=== PATIENT | female | born 1970 | race Caucasian/White ===

== ENCOUNTER 2019-08-30 18:42 | Inpatient (IN) | payer OTHER ==
[~2019-08-30] VITALS: Ht 170.2 cm; Wt 84.6 kg
[2019-08-30] VITALS (114 sets, daily range): BP systolic 138; BP diastolic 88; PULSE 106; TEMP 99.7; O2SAT 88–98
[2019-08-30] MEDS ORDERED: SYNTHROID0.1 MG/TAB PO (18:56)
[2019-08-30] MEDS ORDERED: CORTEF5 MG PO (18:56)
[2019-08-30] MEDS ORDERED: PROAIR HFA0.09 MG/AC IH (18:57)
[2019-08-30] MEDS ORDERED: ARNUITY200 IH (18:58)
[2019-08-30] MEDS ORDERED: FLEXERIL 1010 MG/TAB PO (18:58)
[2019-08-30] MEDS ORDERED: ZITHROMAX500 M2 PO (18:59)
[2019-08-30] MEDS ORDERED: ETHAMBUTOL HYD400 MG PO (18:59)
[2019-08-30] MEDS ORDERED: RIFADIN300 MG PO (18:59)
[2019-08-30] MEDS ORDERED: TOPAMAX 100MG100 M1 PO (18:59)
[2019-08-30] MEDS ORDERED: NEURONTIN400 MG/CAP PO (19:00)
[2019-08-30] MEDS ORDERED: PERCOCET 325 MG1 TA2 PO (19:01)
[2019-08-30] MEDS ORDERED: MS CONTIN 115 MG/TAB PO (19:01)
[2019-08-30] MEDS ORDERED: ATIVAN 1MG T1 MG/TAB PO (19:01)
[2019-08-30] MEDS ORDERED: MINIPRESS 1M1 MG/CAP PO (19:02)
[2019-08-30 19:05] LABS: BASO % 0.2 % (0.0-2.0); EOS # 0.3 (0.0-0.7); EOS % 2.1 % (0-4.0); GRAN # 10.5 (1.4-6.5); GRAN % 76.9 % (42.2-75.2); LYMPH # 1.4 (1.2-3.4); LYMPH % 10.2 % (20.0-51.0); MEAN CELL VOLUME 100 fl (80.0-100.0); MEAN CORPUSCULAR HGB CONC 36 g/dl (33.0-37.0); MEAN PLATELET VOLUME 8.3 fl (7.4-10.4); MONO # 1.3 (0.1-0.6); MONO % 9.6 % (1.7-9.3); PLATELET COUNT 199 K/mm3 (130-400); RED BLOOD COUNT 2.74 M/mm3 (4.10-5.30)
[2019-08-30 19:06] LABS: HEMATOCRIT 27.4 % (37.0-47.0); HEMOGLOBIN 9.8 g/dl (12.5-16.0); MEAN CORPUSCULAR HEMOGLOBIN 36 pg (27.0-31.0)
[2019-08-30] MEDS ORDERED: COMPAZINE 110 MG/TAB PO (19:07)
[2019-08-30] MEDS ORDERED: ZOFRAN ODT8 MG PO (19:08)
[2019-08-30] MEDS ORDERED: PRILOSEC 20MG20 MG PO (19:08)
[2019-08-30] MEDS ORDERED: MAXALT10 MG PO (19:09)
[2019-08-30] MEDS ORDERED: SINGULAIR 110 MG/TAB PO (19:09)
[2019-08-30] MEDS ORDERED: ZOVIRAX5% TP (19:09)
[2019-08-30] MEDS ORDERED: BALANCE B-1001 TA1 PO (19:10)
[2019-08-30] MEDS ORDERED: CALCIUM CITRATE1 TA7 PO (19:10)
[2019-08-30] MEDS ORDERED: REMERON 15M15 MG/TA1 PO (19:11)
[2019-08-30] MEDS ORDERED: ECHINACEA 5001 EACH (19:11)
[2019-08-30] MEDS ORDERED: BRINTELLIX10 PO (19:11)
[2019-08-30 19:37] LABS: ARTERIAL BLD GAS O2 SATURATION 94.7 % (92-100); ARTERIAL BLD GAS TCO2 CT 23.6; ARTERIAL BLOOD GAS BASE EXCESS -2.8 (-2-2); ARTERIAL BLOOD GAS HCO3 22.4 meq/L (22-26); ARTERIAL BLOOD GAS PCO2 40.3 mmHg (35-45); ARTERIAL BLOOD GAS PO2 78.6 mmHg (80-100); ARTERIAL BLOOD GAS pH 7.36 (7.35-7.45)
[2019-08-30 19:43] LABS: ALBUMIN 3.8 gm/dL (3.5-5.0); BILIRUBIN,TOTAL 0.5 mg/dL (0.0-1.0); CREATININE, serum 0.68 (0.52-1.25)
[2019-08-30 19:52] LABS: COLLECTION METHOD CLEAN CATCH
[2019-08-30 20:05] LABS: PH 7 (5-8); SQUAMOUS EPITHELIAL None Seen /hpf; URINE APPEARANCE Clear; URINE BACTERIA None Seen /hpf; URINE BILIRUBIN Negative (NEGATIVE); URINE BLOOD 1+ (NEGATIVE); URINE COLOR Yellow; URINE GLUCOSE Negative (NEGATIVE); URINE KETONE Negative (NEGATIVE); URINE LEUKOCYTE ESTERASE Negative (NEGATIVE); URINE NITRATE Negative (NEGATIVE); URINE PROTEIN(semi-quant) Negative (NEGATIVE); URINE RBC 0-2 /hpf; URINE UROBILINOGEN Negative (NEGATIVE)
--- NOTE | 2019-08-30 21:55 | NUR ---
Patient arrived on unit via ER bed accompanied by DERRICK Juan. Patient stood from bed and transferred to unit bed with x1 assist, connected to CRM, oriented to room. Patient stated that she was nauseated and wanted Zofran, I stated that I would check her MAR and administer it if it was on there. PT noted to be coughing but not producing anything yet. 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 Will continue to monitor and educate.
[2019-08-31] VITALS (621 sets, daily range): BP systolic 111–146; BP diastolic 64–85; PULSE 84–113; TEMP 98.2–99.7; O2SAT 86–100
[2019-08-31 06:40] LABS: HEMOGLOBIN 10.5 g/dl (12.5-16.0); MEAN CELL VOLUME 102 fl (80.0-100.0); MEAN CORPUSCULAR HEMOGLOBIN 35 pg (27.0-31.0); MEAN CORPUSCULAR HGB CONC 35 g/dl (33.0-37.0); MEAN PLATELET VOLUME 8.4 fl (7.4-10.4); PLATELET COUNT 184 K/mm3 (130-400); RED BLOOD COUNT 2.97 M/mm3 (4.10-5.30); REDCELL DISTRIBUTION WIDTH-CV 13.8 % (11.5-14.5)
[2019-08-31 06:51] LABS: ALANINE AMINOTRANSFERASE 28 U/L (9-52); ALBUMIN 3.7 gm/dL (3.5-5.0); ALKALINE PHOSPHATASE 177 U/L (50-136); ANION GAP 10 mmol/L (7-16); AST,SGOT 39 U/L (15-37); BILIRUBIN,TOTAL 0.4 mg/dL (0.0-1.0); BLOOD UREA NITROGEN 11 mg/dL (7-17); CARBON DIOXIDE 26 mmol/L (22-30); CHLORIDE 90 mmol/L (98-107); GLUCOSE 135 mg/dL (74-106); MAGNESIUM 1.7 mg/dL (1.6-2.3); POTASSIUM 4.4 mmol/L (3.4-5.0); SODIUM 127 mmol/L (137-145); TOTAL PROTEIN 6.8 gm/dL (6.4-8.2)
[2019-08-31 06:59] LABS: HEMATOCRIT 30.2 % (37.0-47.0)
[2019-08-31 07:02] LABS: TROPONIN-I < 0.012 ng/mL (0.000-0.035)
[2019-08-31 07:08] LABS: BAND 4 % (0-10); LYMPHOCYTE 1 % (20.0-51.0); NEUTROPHILS 94 % (42.0-75.2)
[2019-08-31 07:09] LABS: ANISOCYTOSIS 1+; PLATELET ESTIMATE NORMAL (NORMAL)
[2019-08-31 09:59] LABS: CREATININE, serum 0.8 (0.52-1.25)
[2019-08-31 10:00] LABS: FRACTIONAL EXCRETION OF NA+ 0.3 %
--- NOTE | 2019-08-31 14:02 | NUR ---
Plan: To return home with son as her care [phone]. Patient also wants her son listed as her EMR. Patient reports that she does not currently have a DPOA, SW left a form with her to view and discuss with her son. Patient resides in [place], however she is here visiting her son currently. Assess: SW met with patient who was laying in bed watching television. Patient reports that she is independent with no DME assistance at home. Patient reports that her PCP is Dr. Dane Doe who resides in [place], with no upcoming appointments. Patient receives her medications from [facility] in [place]. Patient did remark how expensive her medications were. She was provided with a [facility] prescription card for assistance. Patient denied having any care concerns, and she denied a need for HHS. Action: No additional concerns identified. Patient was educated on community resources and supports.
--- NOTE | 2019-08-31 16:37 | NUR ---
Pt transported to 3rd Surgical floor, pt tolerated transfer well. Care resumed
--- NOTE | 2019-08-31 18:27 | NUR ---
Patient has done well. Up at sink brushing her teeth independently. Steady gait. Patient denies pain or further needs at this time. Will report off to intensive care medicine specialist.
--- NOTE | 2019-08-31 22:22 | NUR ---
LUNGS COARSE WITH EXP WHEEZES. PT HAS BEEN COUGHING. NO SPUTUM PRODUCTION SEEN/REPORTED.
[2019-09-01 00:24] VITALS: BP 133/65; PULSE 90; TEMP 98.4
[2019-09-01 04:05] VITALS: BP 119/64; PULSE 85; TEMP 97.8
[2019-09-01 07:35] VITALS: BP 133/71; PULSE 97; TEMP 98
--- NOTE | 2019-09-01 08:00 | NUR ---
Medicated with Zofran per request. Percocet given for c/o abdominal pain. Stated doesn't feel good in general. O2 on.
[2019-09-01 11:20] VITALS: BP 118/72; PULSE 86; TEMP 98.3
[2019-09-01 13:09] LABS: BASO % 0.1 % (0.0-2.0); GRAN % 84.1 % (42.2-75.2); HEMATOCRIT 29.4 % (37.0-47.0); LYMPH % 9.1 % (20.0-51.0); MEAN CELL VOLUME 104 fl (80.0-100.0); MEAN CORPUSCULAR HEMOGLOBIN 36 pg (27.0-31.0); MEAN CORPUSCULAR HGB CONC 34 g/dl (33.0-37.0); MEAN PLATELET VOLUME 8.5 fl (7.4-10.4); MONO # 0.6 (0.1-0.6); MONO % 5.3 % (1.7-9.3); PLATELET COUNT 218 K/mm3 (130-400); RED BLOOD COUNT 2.82 M/mm3 (4.10-5.30); REDCELL DISTRIBUTION WIDTH-CV 14.2 % (11.5-14.5)
[2019-09-01 13:23] LABS: ALBUMIN 3.8 gm/dL (3.5-5.0); BILIRUBIN,TOTAL 0.2 mg/dL (0.0-1.0); CALCIUM 9.3 mg/dL (8.4-10.2); CREATININE, serum 0.74 (0.52-1.25); POTASSIUM 4.9 mmol/L (3.4-5.0)
[2019-09-01 16:11] VITALS: BP 112/60; PULSE 98; TEMP 98.9
--- NOTE | 2019-09-01 18:00 | NUR ---
States coughing up more phlegm this afternoon. Afebrile. Pain and nausea relieved with prn meds.
[2019-09-01 19:56] VITALS: BP 126/68; PULSE 92; TEMP 98.8
--- NOTE | 2019-09-01 20:00 | NUR ---
Pt resting in bed. No distress noted. Respiration even. Pt is dyspneic with exertion. Expiratory wheezes auscultated throughout lung flowers. O2 titrated down to 1L via NC. Spo2 96%. Pt rating pain 6/10 in R LQ. Abdomen is soft- tender at RLQ. BS+. Telemetry in place- ST. Pt c/o anxiety, as well.
[2019-09-02 00:25] VITALS: BP 115/64; PULSE 84
[2019-09-02 04:37] VITALS: BP 130/57; PULSE 89; TEMP 98.8
--- NOTE | 2019-09-02 06:20 | NUR ---
Pt sleeping this AM after being awake a majority of the night. Pain well controlled with PRN pain medication. VSS.
[2019-09-02 06:24] LABS: MEAN CELL VOLUME 105 fl (80.0-100.0); MEAN CORPUSCULAR HGB CONC 33 g/dl (33.0-37.0); MEAN PLATELET VOLUME 8.4 fl (7.4-10.4); PLATELET COUNT 220 K/mm3 (130-400); RED BLOOD COUNT 2.57 M/mm3 (4.10-5.30); REDCELL DISTRIBUTION WIDTH-CV 14.5 % (11.5-14.5)
[2019-09-02 06:26] LABS: HEMOGLOBIN 8.9 g/dl (12.5-16.0); MEAN CORPUSCULAR HEMOGLOBIN 35 pg (27.0-31.0)
[2019-09-02 06:35] LABS: ALBUMIN 3.2 gm/dL (3.5-5.0); BILIRUBIN,TOTAL 0.1 mg/dL (0.0-1.0); CREATININE, serum 0.81 (0.52-1.25); POTASSIUM 4.2 mmol/L (3.4-5.0)
[2019-09-02 07:25] LABS: BAND 5 % (0-10); LYMPHOCYTE 26 % (20.0-51.0); NEUTROPHILS 62 % (42.0-75.2); PLATELET ESTIMATE NORMAL (NORMAL)
[2019-09-02 07:26] VITALS: BP 128/69; PULSE 77; TEMP 98.7
[2019-09-02] MEDS ORDERED: LEVAQUIN 5500 MG/TA1 PO (10:54)
[2019-09-02] MEDS ORDERED: PREDNISONE10 MG PO (11:07)
--- NOTE | 2019-09-02 11:17 | NUR ---
SW presented the IM form to the patient. The patient understood and signed the form. A copy was provided to the patient and original was placed in the chart. social human services assistants will continue to follow.
[2019-09-02 11:19] VITALS: BP 129/75; PULSE 93; TEMP 98.6
--- NOTE | 2019-09-02 15:43 | NUR ---
The patient is needing oxygen. MADELINE faxed referral to [facility] due to the patient living in [place]. [employer] [employer]'s parent company is [employer] and this company is national. MADELINE faxed referral and awaiting response.
[2019-09-02 16:02] VITALS: BP 106/58; PULSE 93; TEMP 99.3
--- NOTE | 2019-09-02 16:36 | NUR ---
Ernestina from [facility] [employer] report they will set-up oxygen for the patient. There are no addtional needs at this time.
--- NOTE | 2019-09-02 18:04 | NUR ---
Patient will discharge this evening. Her son can not pick her up until after 2030pm. [facility] brought her oxygen tanks for going to her sons. Her IV was pulled out, IV discontinued since she is discharging. Medication for nausea and pain given as ordered troughout the shift. No other changes at this time. Call light within reach.
--- NOTE | 2019-09-02 22:46 | NUR ---
PATIENT DISCHARGING. IV PREVIOUSLY DC'D BY NURSING STAFF. PATIENT TEACHING DONE. PATIENT DRESSED INDEPENDENTLY. PATIENT DISCHARGED AT 1999. ESCORTED OUT BY NURSING STAFF VIA WHEELCHAIR TO HOME WITH SON.
== END 2019-09-02 20:00 | disposition home or self-care (01) | DRG 871 ==
LOC: COL.ER 18:42 → SURG 20:20 → ICU 20:20 → SURG 08-31 16:24
PROVIDERS: Family Medicine; Student in an Organized Health Care Education/Training Program; ADMIT Internal Medicine
DX: A41.9 Sepsis, unspecified organism (principal); J18.9 Pneumonia, unspecified organism; J96.01 Acute respiratory failure with hypoxia; C92.00 Acute myeloblastic leukemia, not having achieved remission; J44.0 Chronic obstructive pulmonary disease with (acute) lower respiratory infection; E27.40 Unspecified adrenocortical insufficiency; E87.1 Hypo-osmolality and hyponatremia; Z94.81 Bone marrow transplant status; F41.9 Anxiety disorder, unspecified; F43.10 Post-traumatic stress disorder, unspecified; F17.210 Nicotine dependence, cigarettes, uncomplicated; I25.10 Atherosclerotic heart disease of native coronary artery without angina pectoris; J20.9 Acute bronchitis, unspecified; B97.10 Unspecified enterovirus as the cause of diseases classified elsewhere; G43.909 Migraine, unspecified, not intractable, without status migrainosus; G89.29 Other chronic pain; E03.9 Hypothyroidism, unspecified; Z93.2 Ileostomy status; Z85.048 Personal history of other malignant neoplasm of rectum, rectosigmoid junction, and anus; Z79.52 Long term (current) use of systemic steroids
CPT/HCPCS: 99223-AI; 99232-AI; 99239; A4216; A9284; J0692; J1644; J1940; J1956; J2405; J2920; J7030; Q9967